=== PATIENT | female | born 1940 | race Caucasian/White ===

== ENCOUNTER 2022-05-22 15:49 | Outpatient (CLI) | payer MEDICARE, BC, SELFPAY ==
[2022-05-22 18:25] LABS: SARS PCR* POSITIVE SARS-CoV-2 (Negative)
== END 2022-05-22 15:50 | disposition home or self-care (01) ==
LOC: LONREF 15:49
PROVIDERS: PCP Family Medicine; Visit Provider Family Medicine
DX: U07.1 COVID-19 (principal); R05.9 Cough, unspecified
CPT/HCPCS: 87635

== ENCOUNTER 2023-04-29 12:01 | Outpatient (CLI) | payer MEDICARE, BC, SELFPAY | END 2023-04-29 12:02 | disposition home or self-care (01) | PROVIDERS: PCP Family Medicine; Visit Provider Family Medicine | DX: I10 Essential (primary) hypertension (principal); Z13.0 Encounter for screening for diseases of the blood and blood-forming organs and certain disorders involving the immune mechanism; Z13.29 Encounter for screening for other suspected endocrine disorder; Z13.21 Encounter for screening for nutritional disorder | CPT/HCPCS: 80048; 82607; 84443 ==

== ENCOUNTER 2023-05-24 10:49 | Outpatient (CLI) | payer MEDICARE, BC, SELFPAY | END 2023-05-24 10:50 | disposition home or self-care (01) | LOC: RAD 10:52 | PROVIDERS: PCP Family Medicine; Visit Provider Family Medicine | DX: R01.1 Cardiac murmur, unspecified (principal); I35.1 Nonrheumatic aortic (valve) insufficiency; I34.0 Nonrheumatic mitral (valve) insufficiency | CPT/HCPCS: 93306 ==

== ENCOUNTER 2024-10-18 05:19 | Outpatient (CLI) | payer MEDICARE, BC, SELFPAY | END 2024-10-18 05:20 | disposition home or self-care (01) | LOC: AMB 10-30 00:35 | PROVIDERS: PCP Family Medicine; Visit Provider Family Medicine | DX: R06.09 Other forms of dyspnea (principal) | CPT/HCPCS: A0425; A0427 ==

== ENCOUNTER 2024-10-18 05:47 | Emergency (ER) | payer MEDICARE, BC, SELFPAY ==
[2024-10-18] VITALS (62 sets, daily range): BP systolic 104–151; BP diastolic 61–92; PULSE 101–119; RESP 18–24; TEMP 36.3; O2SAT 90–100
--- OUTSIDE RECORDS SUMMARY | 2024-10-18 05:50 | XMS_ITS ---
Author Organization [facility] Address [address] [place] [address] Care Team Providers Care Staff Submarine Warfare Officer Name Role Phone Unavailable Unavailable Unavailable Surgery Details Not on file Complications Check Surgery Details section. Procedure Estimated Blood Loss Check Surgery Details section. Procedure Findings Check Surgery Details section. Procedure Specimens Taken Check Surgery Details section.
--- OUTSIDE RECORDS SUMMARY | 2024-10-18 05:50 | XMS_ITS ---
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 Past Treatment and Therapy Plans No past plan information found. Past Radiation Episodes * SBRT: Right Lung - Upper lobeOverview* First Treatment Date Last Treatment Date Treatment Site Technique Goal Episode Provider 08/09/2021 08/14/2021 Right Upper lobe of lung SBRT Curative Leidy Dominguez RMychalN. 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 Mars 03/21/2020 07/03/21: S/p Flexible Bronchoscopy, Right VATS (Video Assisted Thoracoscopic Surgery), Right Lower Lobe Wedge Resection and Thoracic Lymphadenectomy by Dr. Mars. Loss Weight Abnormal 09/19/2017 024
--- OUTSIDE RECORDS SUMMARY | 2024-10-18 05:50 | XMS_ITS | Referral Summary ---
Author Organization [facility] Address [address] [place] [address] Care Team Providers Care Interventional Radiology Technologist Name Role Phone Unavailable Primary Care Provider Unavailabl e Source Comments Patient records contain information from all sites at [facility]. For routine questions regarding patient records, call [phone] during business hours, M-F 8:00 AM - 5:00 PM Central Time. Record requests for emergency care only can be directed to [phone] at any time.[facility] Allergies Active Allergy Reactions Criticality Noted Date Comments Iodine Rash 09/19/2017 Oxycodone Nausea And Vomiting 03/23/2020 Tolerated IV Dilaudid and Adams during hospitalization. Shellfish Derived Anaphylaxis High 09/19/2017 Sulfa (Sulfonamide Antibiotics) Itching 11/18/2020 Medications multivitamin tablet Take 1 tablet by mouth daily. Active acetaminophen (TYLENOL) 500 mg tablet Take 1,000 mg by mouth. 07/06/2021 Active ibuprofen (ADVIL,MOTRIN) 600 mg tablet Take 600 mg by mouth. 07/06/2021 Active hydroCHLOROthia zide (HYDRODIURIL) 25 mg tablet Take 25 mg by mouth daily. 07/30/2022 Active Spiriva with HandiHaler 18 mcg inhalation capsule Inhale 1 capsule daily. 01/13/2023 Active OMEPRAZOLE ORAL Take 10 mg by mouth. 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 Mars. Loss Weight Abnormal 09/19/2017 024 Immunizations Immunization Administration Dates Next Due Influenza TIV (IM) 07/12/2008, 7,07/31/2006,2004 Influenza high dose QV(65 ye ars or older) (PF) 08/06/2023,07/12/2022,06/28/2021,2019 Influenza, Injectable, Quadrivalent 07/15/2017 Influenza, Seasonal, Injectable 07/12/20 08,07/23/2007,07/31/2006,2004 PCV13 11/16/2014 PPSV23 02/21/2011,12/05/2005 Tdap 04/29/2023,02/21/2011 influenza trivalent high dos e (HD)(PF) 07/28/2019,07/02/2018,07/17/2017,2015,07/05/2015,06/29/2014 influenza trivalent vaccine (6 months and older)(PF) 06/09/2013,06/25/2012,07/11/2011,2009,06/29/2009 Social History Tobacco Use Types Packs/Day Years Used Date Smoking Tobacco: Former Cigarettes Smokeless Tobacco: Never Tobacco Cessation:Counseling Given: Not Answered Nutrition Answer Date Recorded Nutrition: EVOO Fat Source Unknown 07/19 Nutrition: Servings of Fruits/Vegetables per Day Not on file 07/19/2021 Dental Answer Date Recorded Dental: Regular Dentist Unknown 07/19/20 21 Comments Unknown Sex and Gender Information Value Date Recorded Sex Assigned at Not on file Legal Sex Female 1:22 PM 3D DESIGNER Gender Identity Not on file Sexual Orientation Not on file Last Filed Vital Signs Vital Sign Reading Time Taken Comments Blood Pressure 115/50 05/07/2024 11:30 AM CDT Pulse 74 05/07/2024 11:30 AM CDT Temperature 36.9 C (98.5 F) 05/07/2024 11:30 AM CDT Respiratory Rate - - Oxygen Saturation - - Inhaled Oxygen Concentration - - Weight 55 kg (121 lb 4.1 oz) 05/07/2024 11:30 AM CDT Height 161.5 cm (5' 3.58) 08/02/2021 1:23 PM CD T Body Mass Index 21.09 08/02/2021 1:23 PM CDT Plan of Treatment Upcoming Encounters Date Type Department Care Team (Late st Contact Info) Description 11/05/2024 10:30 AM 3D DESIGNER Appointment Department of Radiology in [place], [place] [address] [place] [phone] Merle Gonzáles P.A.-C., M.S. [address] [place] [phone] Discharge Disposition: Home or Self Care 11/10/2024 2:30 PM 3D DESIGNER Appointment Department of Radiation Oncology in [place], [place] [address] [place] [phone] Olive Johnston M.D. [address] [place] [phone] Insurance MEDICARE [facility]
--- OUTSIDE RECORDS SUMMARY | 2024-10-18 05:50 | XMS_ITS | Clinical Summary ---
Author Organization [facility] Address [place], [place] [address] Care Team Providers Care Rack Pusher Name Role Phone Arianne Hernandez RN, BSN Unavailable [phone] Soto Mars MD Unavailable [phone] Pcp, No Primary Care Provider Unavailabl e Allergies Active Allergy Reactions Criticality Noted Date Comments Iodine Rash 09/19/2017 Oxycodone Nausea And Vomiting 03/23/2020 Tolerated IV Dilaudid and Pound during hospitalization. Shellfish Derived Anaphylaxis High 09/19/2017 Sulfa (Sulfonamide Antibiotics) Itching 11/18/2020 Medications SPIRIVA 18 mcg inhalation capsule Inhale 18 mcg by mouth once daily. 09/17/20 17 Active multivitamin (MVI) tablet Take 1 tablet by mouth once daily. Active ibuprofen (ADVIL; MOTRIN) 600 mg tabletIndication s:pain Take 1 Tablet (600 mg) by mouth 3 times daily with meals. Maximum of 3200 mg in 24 hours. 150 Tablet 07/06/2021 1:18 PM CDT 07/06/20 21 Active acetaminophen (TYLENOL EXTRA STRGTH) 500 mg tabletIndication s:Primary cancer of right lower lobe of lung (HC) Take 2 Tablets (1,000 mg) by mouth 4 times daily if needed. Max acetaminophen dose: 4000mg in 24 hrs. 150 Tablet 07/06/2021 1:18 PM CDT 07/06/20 21 Active hydroCHLOROthiaz walter 25 mg tablet Take 25 mg by mouth once daily. 07/30/20 22 Active albuterol HFA (PRO-AIR; VENTOLIN; PROVENTIL) 90 mcg/actuation inhalerIndicatio ns:COPD exacerbation (HC) Inhale 1-2 Puffs by mouth every 4 hours if needed for Shortness Of Breath or Wheezing. 3 Each 3 04/03/20 24 Active Active Problems Problem Noted Date Diagnosed Date Empyema of right pleural space 07/10/2021 Leukocytosis 07/09/2021 Hyponatremia 07/09/2021 RAKESH (acute kidney injury) 07/09/2021 Primary cancer of right lower lobe of lung 07/04 S/P partial lobectomy of lung 07/04/2021 Overview (07/04/2021): 07/03/21: S/p Flexible Bronchoscopy, Right VATS (Video Assisted Thoracoscopic Surgery), Right Lower Lobe Wedge Resection and Thoracic Lymphadenectomy by Dr. Mars. Primary cancer of right upper lobe of lung 11/21 Overview (11/21/2020): S/p right VATS, right upper lobe wedge resection and thoracic lymphadenectomy performed by Dr. Mars on 11/21/2020 Primary cancer of left upper lobe of lung 2019 S/P lobectomy of lung 03/21/2020 Overview (03/21/2020): S/p Left VATS, Left Upper Lobectomy, Thoracic Lymphadenectomy performed by Dr. Mars 03/21/2020 Other emphysema 09/19/2017 Achalasia 09/19/2017 Esophageal diverticular disease 09/19/2017 Dysphasia 09/19/2017 Weight loss 09/19/2017 Immunizations Name Administration Dates Next Due COVID-19 VACCINE SPIKEVAX (M ODERNA 50MCG/0.5ML) 12YO+ PFS 10/21/2023 Influenza Virus, Unspecified 07/15/2017, 07/12/2008,07/23/2007,2005,08/22/2005 Influenza, High-dose Inactivated 019,07/02/2018,07/17/2017,2015,07/05/2015,06/29/2014 Influenza, High-dose Quadriv alent Inactivated 08/06/2023,07/12/2022,06/28/2021,2019 Influenza, IIV3 (Age 6-35 mos) 3,06/25/2012,07/11/2011,2009,06/29/2009 Influenza, IIV3 (Age >=3 years) 07/12/20 08,07/23/2007,07/31/2006,2004 Influenza, IIV4 07/15/2017 Pneumococcal Poly,23-Valent (Pneumovax) 02/21/2011,12/05/2005 Pneumococcal conj 13-Valent (Prevnar 13) 11/16/2014 Tdap 04/29/2023,02/21/2011 Family History Medical History Relation Name Comments Cancer-breast Mother Relation Name Status Comments Mother Social History Tobacco Use Types Packs/Day Years Used Date Smoking Tobacco: Former Cigarettes 2 55 Smokeless Tobacco: Never Comments:quit prior to 2009 Alcohol Use Standard Drinks/Week Comments Yes 0 (1 standard drink = 0.6 oz pur e alcohol) 1-3 drinks per day Social Connections Answer Date Recorded Do you often feel lonely or isolated from those around you? 0 04/07/2024 Financial Resource Strain Answer Date R ecorded Difficulty of Paying Living Expenses 3 04/07/2024 Difficulty of Paying Living Expenses Not on file 04/07/2024 Food Insecurity Answer Date Recorded Do you worry your food will run out before you are able to buy more? 1 04/07/2024 Transportation Needs Answer Date Record ed Does lack of transportation keep you from medica l appointments? 1 04/07/2024 Does lack of transportation keep you from work, meetings or getting things that you need? 1 04/07/2024 Housing Stability Answer Date Recorded What is your housing situation today? 1 04/07/2024 Utilities Answer Date Recorded Do you have trouble paying f or utilities (for example, heat, electricity, water, phone)? 1 04/07/2024 Comments No Sex and Gender Information Value Date Recorded Sex Assigned at Not on file Legal Sex Female 5:25 AM TAX ASSOCIATE Gender Identity Not on file Sexual Orientation Not on file Obstetrics History Last Filed Vital Signs Vital Sign Reading Time Taken Comments Blood Pressure 124/50 05/19/2024 8:30 AM CDT Pulse 80 05/19/2024 8:30 AM CDT Temperature 36.8 C (98.2 F) 05/19/2024 8:30 AM CDT Respiratory Rate 20 07/13/2021 10:00 AM CDT Oxygen Saturation 96% 05/19/2024 8:30 AM CDT Inhaled Oxygen Concentration - - Weight 55.3 kg (122 lb) 05/19/2024 8:30 AM CDT Height 165.1 cm (5' 5) 04/03/2024 10:02 AM CDT Body Mass Index 20.3 04/03/2024 10:02 AM CDT Plan of Treatment Health Maintenance Due Date Last Done Comments Depression screening for age 12+ 1952 Zoster (shingles) series for age 50+ (1 of 2) 1990 DEXA/DXA scan for age 65+ 2005 Medicare Wellness for age 65+ 2005 RSV vaccine for adults or (1 - 1-dose 75+ series) 2015 COVID-19 vaccine series ( season) 2024 10/21/2023, 08/07/2022, 09/19/2021, Additional history exists Influenza for age 65+ 05/31/2024 08/06/2023 , 07/12/2022, 06/28/2021, Additional history exists BMI (ht and wt on same day) for age 18+ 04/03/2025 04/03/2024, 11/07/2017, 09/19/2017 Tetanus booster 04/29/2033 04/29/2023, 02/21/2011 Pneumococcal series for age 50+ Completed 11/16/2014, 02/21/2011, 12/05/2005 Tdap Completed 04/29/2023, 02/21/2011 Insurance MEDICARE PB ONLY [facility]UE [facility] FED EMP MEDICARE PART B HB ONLY MEDICARE PART A HB ONLY Advance Directives * Full Code (Latest Code Status on File) Date Activated Date Inactivated Comments 07/09/2021 6:15 PM 07/13/2021 6:55 PM Question Answer Comments Code Status Discussion: Discussed * Full Code Date Activated Date Inactivated Comments 07/03/2021 5:49 AM 07/06/2021 7:04 PM Question Answer Comments Code Status Discussion: Not Discussed * Full Code Date Activated Date Inactivated Comments 11/21/2020 9:33 AM 11/23/2020 2:28 PM Question Answer Comments Code Status Discussion: Not Discussed * Full Code Date Activated Date Inactivated Comments 03/21/2020 10:21 AM 03/25/2020 2:40 PM * Full Code Date Activated Date Inactivated Comments 02/24/2020 9:47 AM 02/24/2020 6:07 PM Care Teams Rack Pusher Relationship Specialty Start Date End Date Pcp, No . PCP - General 06/01/21 Arianne Hernandez, RN, BSN [address] [place] [id number] Cancer Nurse Coordinator Registered Nurse 04/04/20 Soto Mars MD [address] [address] Cancer Nurse Coordinator Surgery - Cardiothoracic 04/05/20
--- OUTSIDE RECORDS SUMMARY | 2024-10-18 05:50 | XMS_ITS | Clinical Summary ---
Author Organization [facility] Address [address] [place] [address] Care Team Providers Care Records Section Supervisor Name Role Phone Unavailable Primary Care Provider Unavailabl e Source Comments Patient records contain information from all sites at [facility]. For routine questions regarding patient records, call [phone] during business hours, M-F 8:00 AM - 5:00 PM Central Time. Record requests for emergency care only can be directed to [phone] at any time.[facility] Allergies Active Allergy Reactions Criticality Noted Date Comments Iodine Rash 09/19/2017 Oxycodone Nausea And Vomiting 03/23/2020 Tolerated IV Dilaudid and Jewett during hospitalization. Shellfish Derived Anaphylaxis High 09/19/2017 [...] on file Legal Sex Female 1:22 PM AUTO FLEET MAINTENANCE MANAGER Gender Identity Not on file Sexual Orientation [...] st Contact Info) Description 11/05/2024 10:30 AM AUTO FLEET MAINTENANCE MANAGER Appointment Department of Radiology in [place], [place] [address] [place] [phone] Merle Gonzáles P.A.-C., M.S. [address] [place] [phone] Discharge Disposition: Home or Self Care 11/10/2024 2:30 PM AUTO FLEET MAINTENANCE MANAGER Appointment Department of Radiation Oncology in [place], [place] [address] [place] [phone] Olive Johnston M.D. [address] [place] [phone] Health Maintenance Due Date Last Done Comments Zoster Vaccines (1 of 2) 1959 RSV vaccine - (32-36 weeks) or 60+ years (1 - 1-dose 75+ series) 2015 COVID-19 Vaccine (6 - 2023- season) 2024 10/21/2023, 08/07/2022, 09/19/2021, Additional history exists Influenza Vaccine (#1) 2024 , 07/12/2022, 06/28/2021, Additional history exists Depression Screening (Annual PHQ-2) 09/30/2024 Fall Risk Screen (Annual) 09/30/2024 DTaP,Tdap,and Td Vaccines (3 - Td or Tdap) 04/29/2033 04/29/2023, 02/21/2011 Pneumococcal vaccine (50+ years) Completed 11/16/2014, 02/21/2011, 12/05/2005 HPV Vaccines Aged Out No longer eligi ble based on patient's age to complete this topic IPV Vaccines Aged Out No longer eligi ble based on patient's age to complete this topic Insurance MEDICARE [facility]
--- NOTE | 2024-10-18 05:58 | ED.GENADULT ---
HPI - General Adult General Time Seen by Provider: 05:58 <Kassandra Castellanos MD - Last Filed: 10/18/24 07:51> Date Seen: 10/18/24 <Kassandra Castellanos MD - Last Filed: 10/18/24 07:51> Chief complaint: Shortness of Breath/Dyspnea <Kassandra Castellanos MD - Last Filed: 10/18/24 07:51> Stated complaint: difficulty breathing <Kassandra Castellanos MD - Last Filed: 10/18/24 07:51> Time Seen by Provider: 10/18/24 05:57 <Kassandra Castellanos MD - Last Filed: 10/18/24 07:51> Source: patient, EMS and RN notes reviewed <Kassandra Castellanos MD - Last Filed: 10/18/24 07:51> Mode of arrival: EMS <Kassandra Castellanos MD - Last Filed: 10/18/24 07:51> Limitations: no limitations <Kassandra Castellanos MD - Last Filed: 10/18/24 07:51> History of Present Illness HPI narrative: This 83-year-old female with underlying COPD called EMS from her home tonight with increased difficulty breathing. Patient does tell me that she has been coughing for 2 months. She denies any new cough, no worsening, no fevers with it. She does not think she has developed a new illness. When EMS arrived at her house, her room air sats were 80%. She had just tried her inhaler. They started her on a DuoNeb which helped her some. They tried her on BiPAP which she did not tolerate. They did give her 0.3 mg epinephrine and did start her on albuterol nebulization. She states that she is still having difficulty breathing. They also did put her on 4 L nasal cannula oxygen. EMS brought this patient in as a [facility] Clinic history reviewed. She has had a history of bronchitis, has underlying COPD. She had non-small cell cancer of left lung with left lobectomy in 2019, right lung cancer resection in 2 places in 2020. History of multiple pulmonary nodules. GERD, history of colon polyps, hypertension, esophageal stenosis. Patient has a remote smoking history, quit in 2009. <Kassandra Castellanos MD - Last Filed: 10/18/24 07:51> Related Data Home medications: Home Medications ?Medication ?Instructions ?Recorded ?Confirmed multivitamin 1 tab PO QDAY 05/22/22 09/28/24 omeprazole 20 mg tablet,delayed mg PO DAILY 05/22/22 09/28/24 release Previous Rx's ?Medication ?Instructions ?Recorded tiotropium bromide 18 mcg capsule 1 cap inhalation DAILY #90 ea 08/26/24 with inhalation device (Spiriva with HandiHaler) albuterol sulfate 90 mcg/actuation 1 - 2 puff inhalation Q4H PRN 09/02/24 aerosol inhaler wheezing #8.5 grams benzonatate 100 mg capsule 100 mg PO TID PRN cough #30 caps 09/02/24 doxycycline hyclate 100 mg tablet 100 mg PO BID #14 tabs 09/02/24 prednisone 20 mg tablet 20 mg PO QDAY #7 tabs 09/02/24 hydrochlorothiazide 25 mg tablet 25 mg PO QDAY #30 tabs 10/13/24 <Kassandra Castellanos MD - Last Filed: 10/18/24 07:51> Allergies/adverse reactions: Allergies Allergy/AdvReac Type Severity Reaction Status Date / Time iodine Allergy Unknown Vomiting Verified 09/28/24 12:45 anesthetic Allergy Intermediate nausea and Uncoded 09/28/24 12:45 vomiting Shrimp Flavor Allergy Mild Uncoded 09/28/24 12:45 Sulfamethoxazole / Allergy Mild itching Uncoded 09/28/24 12:45 trimethoprim <Kassandra Castellanos MD - Last Filed: 10/18/24 07:51> Review of Systems Status of ROS: Reports: 6 or more systems reviewed and unremarkable except as noted in History and below <Kassandra Castellanos MD - Last Filed: 10/18/24 07:51> [facility] Medical History: Medical History Lesion of skin of face ?L98.9 - Disorder of the skin and subcutaneous tissue, unspecified (ICD-10) Tobacco use (10/12/09) ?Z72.0 - Tobacco use (ICD-10) <Kassandra Castellanos MD - Last Filed: 10/18/24 07:51> Surgical History: Surgical History History of repair of hiatal hernia ?Z98.890 - Other specified postprocedural states (ICD-10) ?Z87.19 - Personal history of other diseases of the digestive system (ICD-10) Status post repair of ventral hernia ?Z98.890 - Other specified postprocedural states (ICD-10) ?Z87.19 - Personal history of other diseases of the digestive system (ICD-10) Status post laparoscopic appendectomy ?Z90.49 - Acquired absence of other specified parts of digestive tract (ICD-10) History of colonoscopy ?Z98.890 - Other specified postprocedural states (ICD-10) History of cholecystectomy (10/12/09) ?Z90.49 - Acquired absence of other specified parts of digestive tract (ICD-10) History of section (10/12/09) ?Z98.891 - History of uterine scar from previous surgery (ICD-10) History of cataract extraction ?Z98.49 - Cataract extraction status, unspecified eye (ICD-10) <Kassandra Castellanos MD - Last Filed: 10/18/24 07:51> Family History: Family History Other Breast cancer <Kassandra Castellanos MD - Last Filed: 10/18/24 07:51> Social History: Social History Narrative: Current non-smoker but past smoking history unknown What is your current living situation?: I presently have a place to live Problems where you live: declined to answer In the past 12 months, utilities in danger of being shut off: no In past 12 months, lack of transportation kept you from medical appts, meetings, work, or getting things needed for daily living: no In the past 12 mos, have been you worried that your food would run out before you had money to buy more?: never true In the past 12 mos, the food you bought just didn't last and you didn't have money to buy more?: never true Smoking Status: Former smoker Non-prescribed substance use: denies use How often does anyone, including family, friends and others, physically hurt you: never How often does anyone, including family, friends and others, insult or talk down to you: never How often does anyone, including family, friends and others, threaten you with harm: never How often does anyone, including family, friends and others, scream or curse at you: never <Kassandra Castellanos MD - Last Filed: 10/18/24 07:51> Exam Const: Vital Signs, click to edit/add: Vital Signs - 24 hr 10/18/24 06:01 10/18/24 06:12 10/18/24 06:14 Temperature 97.3 F L Pulse Rate 115 H 114 H Pulse Rate [Pulse Oximeter] 115 H Respiratory Rate 20 22 Blood Pressure 141/91 H Pulse Oximetry 100 97 98 Oxygen Delivery Me thod Nasal Cannula OxyMask Oxygen Flow Rate 5 10/18/24 06:15 10/18/24 06:16 10/18/24 06:16 Temperature Pulse Rate 110 H Pulse Rate [Pulse Oximeter] Respiratory Rate Blood Pressure Pulse Oximetry 97 92 92 Oxygen Delivery Me thod OxyMask Room Air Oxygen Flow Rate 5 10/18/24 06:22 10/18/24 06:22 10/18/24 06:30 Temperature Pulse Rate 108 H Pulse Rate [Pulse Oximeter] Respiratory Rate Blood Pressure Pulse Oximetry 98 98 97 Oxygen Delivery Me thod OxyMask OxyMask Oxygen Flow Rate 2 2 10/18/24 06:32 10/18/24 06:45 10/18/24 07:00 Temperature Pulse Rate 104 H 113 H 101 H Pulse Rate [Pulse Oximeter] Respiratory Rate Blood Pressure 128/75 Pulse Oximetry 96 94 97 Oxygen Delivery Me thod OxyMask Oxygen Flow Rate 10/18/24 07:02 10/18/24 07:15 10/18/24 07:30 Temperature Pulse Rate 108 H 111 H 107 H Pulse Rate [Pulse Oximeter] Respiratory Rate 20 Blood Pressure 130/74 Pulse Oximetry 97 95 94 Oxygen Delivery Me thod OxyMask OxyMask OxyMask Oxygen Flow Rate 10/18/24 07:32 10/18/24 07:45 10/18/24 08:00 Temperature Pulse Rate 105 H 106 H 102 H Pulse Rate [Pulse Oximeter] Respiratory Rate 18 Blood Pressure 114/76 Pulse Oximetry 93 94 94 Oxygen Delivery Me thod OxyMask OxyMask OxyMask Oxygen Flow Rate 10/18/24 08:02 10/18/24 08:15 10/18/24 08:30 Temperature Pulse Rate 109 H 104 H 106 H Pulse Rate [Pulse Oximeter] Respiratory Rate Blood Pressure 109/68 Pulse Oximetry 94 93 96 Oxygen Delivery Me thod OxyMask OxyMask OxyMask Oxygen Flow Rate 10/18/24 08:31 10/18/24 08:45 10/18/24 09:00 Temperature Pulse Rate 105 H 107 H 107 H Pulse Rate [Pulse Oximeter] Respiratory Rate 18 Blood Pressure 111/67 Pulse Oximetry 96 94 97 Oxygen Delivery Me thod OxyMask OxyMask OxyMask Oxygen Flow Rate 10/18/24 09:02 10/18/24 09:15 10/18/24 09:30 Temperature Pulse Rate 104 H 108 H 109 H Pulse Rate [Pulse Oximeter] Respiratory Rate Blood Pressure 104/65 Pulse Oximetry 95 95 93 Oxygen Delivery Me thod OxyMask OxyMask OxyMask Oxygen Flow Rate 2 10/18/24 09:31 10/18/24 09:45 10/18/24 10:00 Temperature Pulse Rate 112 H 111 H 108 H Pulse Rate [Pulse Oximeter] Respiratory Rate Blood Pressure 117/74 Pulse Oximetry 94 95 95 Oxygen Delivery Me thod OxyMask OxyMask OxyMask Oxygen Flow Rate 2 2 2 10/18/24 10:02 10/18/24 10:15 10/18/24 10:30 Temperature Pulse Rate 104 H 105 H 116 H Pulse Rate [Pulse Oximeter] Respiratory Rate Blood Pressure 111/73 Pulse Oximetry 96 95 94 Oxygen Delivery Me thod OxyMask OxyMask OxyMask Oxygen Flow Rate 2 2 2 10/18/24 10:32 10/18/24 10:45 10/18/24 11:02 Temperature Pulse Rate 112 H 105 H 117 H Pulse Rate [Pulse Oximeter] Respiratory Rate Blood Pressure 126/82 127/90 H Pulse Oximetry 94 94 90 Oxygen Delivery Me thod OxyMask OxyMask OxyMask Oxygen Flow Rate 2 2 2 10/18/24 11:03 10/18/24 11:15 10/18/24 11:30 Temperature Pulse Rate 115 H 113 H 109 H Pulse Rate [Pulse Oximeter] Respiratory Rate Blood Pressure Pulse Oximetry 92 92 95 Oxygen Delivery Me thod OxyMask OxyMask OxyMask Oxygen Flow Rate 2 2 2 10/18/24 11:32 10/18/24 11:45 10/18/24 12:00 Temperature Pulse Rate 112 H 106 H 107 H Pulse Rate [Pulse Oximeter] Respiratory Rate Blood Pressure 113/61 Pulse Oximetry 95 94 94 Oxygen Delivery Me thod OxyMask OxyMask OxyMask Oxygen Flow Rate 2 2 2 10/18/24 12:02 10/18/24 12:15 10/18/24 12:30 Temperature Pulse Rate 118 H 111 H 110 H Pulse Rate [Pulse Oximeter] Respiratory Rate Blood Pressure 117/84 Pulse Oximetry 94 94 94 Oxygen Delivery Me thod OxyMask OxyMask OxyMask Oxygen Flow Rate 2 2 2 10/18/24 12:31 10/18/24 12:45 10/18/24 13:00 Temperature Pulse Rate 113 H 110 H 108 H Pulse Rate [Pulse Oximeter] Respiratory Rate Blood Pressure 120/75 Pulse Oximetry 95 93 94 Oxygen Delivery Me thod OxyMask OxyMask OxyMask Oxygen Flow Rate 2 2 2 10/18/24 13:02 10/18/24 13:15 10/18/24 13:30 Temperature Pulse Rate 108 H 110 H 112 H Pulse Rate [Pulse Oximeter] Respiratory Rate Blood Pressure 112/66 Pulse Oximetry 95 92 95 Oxygen Delivery Me thod OxyMask OxyMask OxyMask Oxygen Flow Rate 2 2 2 10/18/24 13:32 Temperature Pulse Rate 107 H Pulse Rate [Pulse Oximeter] Respiratory Rate Blood Pressure 113/64 Pulse Oximetry 95 Oxygen Delivery Me thod OxyMask Oxygen Flow Rate 2 Patient is seen on arrival, she is doing an albuterol neb. She is tachypneic but can speak. Voice is not hoarse. Does do some coughing which sounds coarse. Pupils equal round reactive, sclera clear. Face atraumatic. Neck supple, do not appreciate any masses or jugular venous distension. Lungs with end-expiratory wheezing, do hear prolonged expiratory phase. Do hear air movement throughout the lungs. CV fast but regular, do not appreciate any significant murmur. Normal S1-S2. Abdomen is soft, nontender, nondistended. She has some mild nonpitting lower extremity edema maybe 1+, symmetric between the legs. She is moving her arms and legs. <Kassandra Castellanos MD - Last Filed: 10/18/24 07:51> Vital Signs, click to edit/add: Vital Signs - 24 hr 10/18/24 06:01 10/18/24 06:12 10/18/24 06:14 Temperature 97.3 F L Pulse Rate 115 H 114 H Pulse Rate [Pulse Oximeter] 115 H Respiratory Rate 20 22 Blood Pressure 141/91 H Pulse Oximetry 100 97 98 Oxygen Delivery Me thod Nasal Cannula OxyMask Oxygen Flow Rate 5 10/18/24 06:15 10/18/24 06:16 10/18/24 06:16 Temperature Pulse Rate 110 H Pulse Rate [Pulse Oximeter] Respiratory Rate Blood Pressure Pulse Oximetry 97 92 92 Oxygen Delivery Me thod OxyMask Room Air Oxygen Flow Rate 5 10/18/24 06:22 10/18/24 06:22 10/18/24 06:30 Temperature Pulse Rate 108 H Pulse Rate [Pulse Oximeter] Respiratory Rate Blood Pressure Pulse Oximetry 98 98 97 Oxygen Delivery Me thod OxyMask OxyMask Oxygen Flow Rate 2 2 10/18/24 06:32 10/18/24 06:45 10/18/24 07:00 Temperature Pulse Rate 104 H 113 H 101 H Pulse Rate [Pulse Oximeter] Respiratory Rate Blood Pressure 128/75 Pulse Oximetry 96 94 97 Oxygen Delivery Me thod OxyMask Oxygen Flow Rate 10/18/24 07:02 10/18/24 07:15 10/18/24 07:30 Temperature Pulse Rate 108 H 111 H 107 H Pulse Rate [Pulse Oximeter] Respiratory Rate 20 Blood Pressure 130/74 Pulse Oximetry 97 95 94 Oxygen Delivery Me thod OxyMask OxyMask OxyMask Oxygen Flow Rate 10/18/24 07:32 10/18/24 07:45 10/18/24 08:00 Temperature Pulse Rate 105 H 106 H 102 H Pulse Rate [Pulse Oximeter] Respiratory Rate 18 Blood Pressure 114/76 Pulse Oximetry 93 94 94 Oxygen Delivery Me thod OxyMask OxyMask OxyMask Oxygen Flow Rate 10/18/24 08:02 10/18/24 08:15 10/18/24 08:30 Temperature Pulse Rate 109 H 104 H 106 H Pulse Rate [Pulse Oximeter] Respiratory Rate Blood Pressure 109/68 Pulse Oximetry 94 93 96 Oxygen Delivery Me thod OxyMask OxyMask OxyMask Oxygen Flow Rate 10/18/24 08:31 10/18/24 08:45 10/18/24 09:00 Temperature Pulse Rate 105 H 107 H 107 H Pulse Rate [Pulse Oximeter] Respiratory Rate 18 Blood Pressure 111/67 Pulse Oximetry 96 94 97 Oxygen Delivery Me thod OxyMask OxyMask OxyMask Oxygen Flow Rate 10/18/24 09:02 10/18/24 09:15 10/18/24 09:30 Temperature Pulse Rate 104 H 108 H 109 H Pulse Rate [Pulse Oximeter] Respiratory Rate Blood Pressure 104/65 Pulse Oximetry 95 95 93 Oxygen Delivery Me thod OxyMask OxyMask OxyMask Oxygen Flow Rate 2 10/18/24 09:31 10/18/24 09:45 10/18/24 10:00 Temperature Pulse Rate 112 H 111 H 108 H Pulse Rate [Pulse Oximeter] Respiratory Rate Blood Pressure 117/74 Pulse Oximetry 94 95 95 Oxygen Delivery Me thod OxyMask OxyMask OxyMask Oxygen Flow Rate 2 2 2 10/18/24 10:02 10/18/24 10:15 10/18/24 10:30 Temperature Pulse Rate 104 H 105 H 116 H Pulse Rate [Pulse Oximeter] Respiratory Rate Blood Pressure 111/73 Pulse Oximetry 96 95 94 Oxygen Delivery Me thod OxyMask OxyMask OxyMask Oxygen Flow Rate 2 2 2 10/18/24 10:32 10/18/24 10:45 10/18/24 11:02 Temperature Pulse Rate 112 H 105 H 117 H Pulse Rate [Pulse Oximeter] Respiratory Rate Blood Pressure 126/82 127/90 H Pulse Oximetry 94 94 90 Oxygen Delivery Me thod OxyMask OxyMask OxyMask Oxygen Flow Rate 2 2 2 10/18/24 11:03 10/18/24 11:15 10/18/24 11:30 Temperature Pulse Rate 115 H 113 H 109 H Pulse Rate [Pulse Oximeter] Respiratory Rate Blood Pressure Pulse Oximetry 92 92 95 Oxygen Delivery Me thod OxyMask OxyMask OxyMask Oxygen Flow Rate 2 2 2 10/18/24 11:32 10/18/24 11:45 10/18/24 12:00 Temperature Pulse Rate 112 H 106 H 107 H Pulse Rate [Pulse Oximeter] Respiratory Rate Blood Pressure 113/61 Pulse Oximetry 95 94 94 Oxygen Delivery Me thod OxyMask OxyMask OxyMask Oxygen Flow Rate 2 2 2 10/18/24 12:02 10/18/24 12:15 10/18/24 12:30 Temperature Pulse Rate 118 H 111 H 110 H Pulse Rate [Pulse Oximeter] Respiratory Rate Blood Pressure 117/84 Pulse Oximetry 94 94 94 Oxygen Delivery Me thod OxyMask OxyMask OxyMask Oxygen Flow Rate 2 2 2 10/18/24 12:31 10/18/24 12:45 10/18/24 13:00 Temperature Pulse Rate 113 H 110 H 108 H Pulse Rate [Pulse Oximeter] Respiratory Rate Blood Pressure 120/75 Pulse Oximetry 95 93 94 Oxygen Delivery Me thod OxyMask OxyMask OxyMask Oxygen Flow Rate 2 2 2 10/18/24 13:02 10/18/24 13:15 10/18/24 13:30 Temperature Pulse Rate 108 H 110 H 112 H Pulse Rate [Pulse Oximeter] Respiratory Rate Blood Pressure 112/66 Pulse Oximetry 95 92 95 Oxygen Delivery Me thod OxyMask OxyMask OxyMask Oxygen Flow Rate 2 2 2 10/18/24 13:32 Temperature Pulse Rate 107 H Pulse Rate [Pulse Oximeter] Respiratory Rate Blood Pressure 113/64 Pulse Oximetry 95 Oxygen Delivery Me thod OxyMask Oxygen Flow Rate 2 <Eloy Fisher DO - Last Filed: 10/18/24 14:31> Documenting provider has reviewed patient's vital signs: yes <Kassandra Castellanos MD - Last Filed: 10/18/24 07:51> Course Course ED Course: This patient is having respiratory difficulty and presumably COPD exacerbation. Need to decipher whether is underlying illness whether viral or bacterial. Other considerations could be thromboembolic disease, will get a D-dimer. Will get Solu-Medrol going, consider other medicines as needed is such as Lasix if there should be any fluid overload suggested. May need to give further nebulization. She does not appear to need intubation at this point but may have to talk to her about this if she cannot tolerate BiPAP and is not improving with time here. Will get full complement of labs including cardiac labs, D-dimer, infectious labs with the triple viral swab. <Kassandra Castellanos MD - Last Filed: 10/18/24 07:51> Reevaluation(s) Time of Reevaluation #1: 06:11 <Kassandra Castellanos MD - Last Filed: 10/18/24 07:51> Reevaluation #1: Patient is currently 100% on room air, still mildly tachypneic but has improved aeration from what EMS noted. Nursing staff tells me that she is having a lot of clear nasal drainage and coughing up some sputum. Patient tells me she was supposed to have some type of imaging here last week which got canceled and seems quite upset about it. I tried to refocus the patient and let her know that I have no knowledge of that, we really need to focus on current situation here. She will be getting a chest x-ray for sure right now. We will also get the Solu-Medrol 125 mg IV in. <Kassandra Castellanos MD - Last Filed: 10/18/24 07:51> Time of Reevaluation #2: 06:28 <Kassandra Castellanos MD - Last Filed: 10/18/24 07:51> Reevaluation #2: Have seen radiologist over read of chest x-ray. Will initiate Rocephin and Z-Nadeem for probable community-acquired pneumonia. Awaiting other labs, may need to consider chest imaging with CT in this patient. <Kassandra Castellanos MD - Last Filed: 10/18/24 07:51> Time of Reevaluation #3: 07:49 <Kassandra Castellanos MD - Last Filed: 10/18/24 07:51> Reevaluation #3: Patient is no longer audibly wheezing. She is feeling much better. Her daughter is here. We have reviewed that she has pneumonia. Antibiotics have been initiated. She has her albuterol inhaler but does not have a spacer with this. I have alerted nursing staff, they will either get her spacer or talk to respiratory therapy if here. We did review this small slight rise in her troponin and the need for follow-up troponin. She is not having any chest pain, we reviewed that I do not believe that she has had a heart attack at this point but her illness this morning and respiratory difficulty could have caused strain. If her troponin is rapidly escalating, Cardiology should be consulted. <Kassandra Castellanos MD - Last Filed: 10/18/24 07:51> Consultations Consultation #1: Have spoken with hospitalist Dr. Dunham and we have preliminarily discussed this patient. This patient will need a follow-up troponin, if stable, she will accept the patient. Otherwise, if concerning changes with the troponin, Cardiology will likely need to be talked to to come up with a definitive plan. Will be signing this patient over to my oncoming partner in the ER. <Kassandra Castellanos MD - Last Filed: 10/18/24 07:51> Time: 07:30 <Kassandra Castellanos MD - Last Filed: 10/18/24 07:51> Vital Signs Vital signs: Initial Vital Signs Temperature 97.3 F L 10/18/24 06:01 Temperature Source Temporal Artery Scan 10/18/24 06:01 Pulse Rate 115 H 10/18/24 06:01 Respiratory Rate 20 10/18/24 06:01 Pulse Oximetry 100 10/18/24 06:01 Oxygen Delivery Method Nasal Cannula 10/18/24 06:01 Vital Signs Temperature 97.3 F L 10/18/24 06:01 Pulse Rate 115 H 10/18/24 06:01 Respiratory Rate 20 10/18/24 06:01 Pulse Oximetry 100 10/18/24 06:01 Oxygen Delivery Method Nasal Cannula 10/18/24 06:01 Temperature 97.3 F L 10/18/24 06:01 Pulse Rate 107 H 10/18/24 13:32 Respiratory Rate 18 10/18/24 08:31 Blood Pressure 113/64 10/18/24 13:32 Pulse Oximetry 95 10/18/24 13:32 Oxygen Delivery Method OxyMask 10/18/24 13:32 Oxygen Flow Rate 2 10/18/24 13:32 <Kassandra Castellanos MD - Last Filed: 10/18/24 07:51> Initial Vital Signs Temperature 97.3 F L 10/18/24 06:01 Temperature Source Temporal Artery Scan 10/18/24 06:01 Pulse Rate 115 H 10/18/24 06:01 Respiratory Rate 20 10/18/24 06:01 Pulse Oximetry 100 10/18/24 06:01 Oxygen Delivery Method Nasal Cannula 10/18/24 06:01 Vital Signs Temperature 97.3 F L 10/18/24 06:01 Pulse Rate 115 H 10/18/24 06:01 Respiratory Rate 20 10/18/24 06:01 Pulse Oximetry 100 10/18/24 06:01 Oxygen Delivery Method Nasal Cannula 10/18/24 06:01 Temperature 97.3 F L 10/18/24 06:01 Pulse Rate 107 H 10/18/24 13:32 Respiratory Rate 18 10/18/24 08:31 Blood Pressure 113/64 10/18/24 13:32 Pulse Oximetry 95 10/18/24 13:32 Oxygen Delivery Method OxyMask 10/18/24 13:32 Oxygen Flow Rate 2 10/18/24 13:32 <Eloy Fisher, DO - Last Filed: 10/18/24 14:31> Medications Administered Medications: Generic Name Dose Route Start Last Admin Trade Name Freq PRN Reason Stop Dose Admin Heparin Sodium/Dextrose 25,000 unit in 500 mls @ 0 mls/hr 10/18/24 10:45 10/18/24 11:15 Heparin IV 650 unit/hr .Q0M SHANE 13 mls/hr Administration Protocol Per Protocol Discontinued Medications Generic Name Dose Route Start Last Admin Trade Name Freq PRN Reason Stop Dose Admin Albuterol/Ipratropium 1 neb 10/18/24 12:11 10/18/24 12:15 Iprat-Albut 0.5-2.5 Mg/3 Ml Neb IH 10/18/24 12:12 1 neb ONCE ONE Administration Aspirin 324 mg 10/18/24 10:35 10/18/24 11:12 Aspirin 81 Mg Tab.Chew PO 10/18/24 10:36 324 mg ONCE ONE Administration Azithromycin 500 mg 10/18/24 06:29 10/18/24 06:51 Azithromycin 250 Mg Tablet PO 10/18/24 06:30 500 mg ONCE ONE Administration Heparin Sodium (Porcine) 3,300 unit 10/18/24 10:35 10/18/24 11:13 Heparin 5,000 Unit/0.5 Ml Inj 60 unit/kg (3300 unit) 10/18/24 10:36 3,300 unit IVP Administration ONCE ONE Ceftriaxone Sodium 1 gm/ 100 mls @ 200 mls/hr 10/18/24 06:29 10/18/24 07:28 Sodium Chloride IVPB 10/18/24 06:30 Infused ONCE ONE Infusion Methylprednisolone Sodium Succinate 125 mg 10/18/24 05:58 10/18/24 06:06 Methylprednisolone Sod Succ 62.5 Mg/Ml (125) IVP 10/18/24 05:59 125 mg ONCE ONE Administration <Kassandra Castellanos MD - Last Filed: 10/18/24 07:51> Generic Name Dose Route Start Last Admin Trade Name Freq PRN Reason Stop Dose Admin Heparin Sodium/Dextrose 25,000 unit in 500 mls @ 0 mls/hr 10/18/24 10:45 10/18/24 11:15 Heparin IV 650 unit/hr .Q0M SHANE 13 mls/hr Administration Protocol Per Protocol Discontinued Medications Generic Name Dose Route Start Last Admin Trade Name Freq PRN Reason Stop Dose Admin Albuterol/Ipratropium 1 neb 10/18/24 12:11 10/18/24 12:15 Iprat-Albut 0.5-2.5 Mg/3 Ml Neb IH 10/18/24 12:12 1 neb ONCE ONE Administration Aspirin 324 mg 10/18/24 10:35 10/18/24 11:12 Aspirin 81 Mg Tab.Chew PO 10/18/24 10:36 324 mg ONCE ONE Administration Azithromycin 500 mg 10/18/24 06:29 10/18/24 06:51 Azithromycin 250 Mg Tablet PO 10/18/24 06:30 500 mg ONCE ONE Administration Heparin Sodium (Porcine) 3,300 unit 10/18/24 10:35 10/18/24 11:13 Heparin 5,000 Unit/0.5 Ml Inj 60 unit/kg (3300 unit) 10/18/24 10:36 3,300 unit IVP Administration ONCE ONE Ceftriaxone Sodium 1 gm/ 100 mls @ 200 mls/hr 10/18/24 06:29 10/18/24 07:28 Sodium Chloride IVPB 10/18/24 06:30 Infused ONCE ONE Infusion Methylprednisolone Sodium Succinate 125 mg 10/18/24 05:58 10/18/24 06:06 Methylprednisolone Sod Succ 62.5 Mg/Ml (125) IVP 10/18/24 05:59 125 mg ONCE ONE Administration <Eloy Fisher DO - Last Filed: 10/18/24 14:31> Medical Decision Making MDM Narrative Medical decision making narrative: She is patient's cyanosis or has a repeat troponin and likely admission. Has been a troponin came back elevated that is 0.68. EKG at that time was going to be showing some T-wave inversions and some she also rate slightly elevated she ST segment. T-waves do appear different compared to previous EKG earlier this morning. She states she currently she says not having any chest pains has never had chest at all with the symptoms. States his shortness of breath has improved significantly. But due to the concern for STEMI I did speak to the on-call having mottler operator, Dr. Bansal. I explained to him the patient is feeling well at this time with no chest pain improved shortness of breath or to initial evaluation. He reviewed the EKGs and he does not think she is having a STEMI but does he take heart catheterization. States he will accept her for transfer. There is a 12 hour wait at this time. He also states that continuing to elevated troponins in the absence of new EKG changes or new symptoms would not require any speed up in the transfer process. Due to this I do not believe is necessary continue to trend her troponins as it would not change management lead on that she become symptomatic. She is given aspirin and heparin. Wall rule waiting she was feeling short of breath again and a dual neb and Aerobika help with her symptoms. Repeated another EKG a few hours later to make sure there was no changes prior to allowing her to eat to make sure she has not got any immediate procedures. <Eloy Fisher DO - Last Filed: 10/18/24 14:31> Lab Data Lab results reviewed: Yes I reviewed the patient's lab results <Kassandra Castellanos MD - Last Filed: 10/18/24 07:51> Labs: Lab Results 10/18/24 10/18/24 10/18/24 Range/Units 06:14 06:16 09:27 WBC 10.37 (4.50-11.00) K/uL RBC 4.71 (4.00-5.20) m/uL Hgb 14.9 (12.0-16.0) gm/dL Hct 43.7 (33.0-51.0) % MCV 93 (80-100) fL MCH 32 (26-34) pg MCHC 34 (32-36) gm/dL RDW Coeff of Zeny 13.3 (11.5-15.5) % Plt Count 303 (140-440) K/uL Neut % (Auto) 72.9 H (42.0-72.0) % Lymph % (Auto) 14.9 L (20-44) % Menard % (Auto) 4.9 (0.0-11.0) % Eos % (Auto) 6.0 (0.0-7.0) % Baso % (Auto) 1.1 (0.0-3.0) % Neut # (Auto) 7.60 H (1.7-7.0) K/uL Lymph # (Auto) 1.50 (0.90-2.90) K/uL Menard # (Auto) 0.50 (0.00-0.90) K/UL Eos # (Auto) 0.62 H (0.00-0.50) K/uL Baso # (Auto) 0.11 (0.00-0.30) K/uL Abs Immat Gran (auto) 0.02 (0.00-0.30) K/uL Imm/Tot Granulo (auto) 0.2 % INR 0.87 L (0.91-1.10) APTT 29 (23-33) Seconds D-Dimer Quant (PE/DVT) 0.47 (0.00-0.50) ug/ml VBG pH 7.341 (7.32-7.43) VBG pCO2 53 H (40-50) mmHG VBG pO2 30.1 (25-47) mmHG VBG HCO3 28 (21-28) mmol/L Sodium 134 L (135-149) mmol/L Potassium 3.2 L (3.6-5.1) mmol/L Chloride 97 (96-114) mmol/L Carbon Dioxide 27 (20-32) mmol/L Anion Gap 10 (7-15) mEq/L BUN 18 (7-30) mg/dL Creatinine 0.8 (0.5-1.5) mg/dL Estimated GFR 73 ml/min Glucose 172 H (60-115) mg/dL Lactate 1.5 (0.5-1.9) mmol/L Calcium 9.6 (8.4-10.6) mg/dL Magnesium 2.1 (1.5-2.6) mg/dL Total Bilirubin 1.9 H (0.1-1.5) mg/dL AST 29 (12-35) U/L ALT 27 (4-35) U/L Alkaline Phosphatase 120 (40-150) U/L Troponin I 0.05 H 0.68 H* (0.01-0.04) ng/mL C-Reactive Protein < 0.5 L (0.5-1.0) mg/dL NT-Pro-B Natriuret Pep 306 pg/mL Total Protein 7.4 (6.0-8.3) g/dL Albumin 4.5 (3.3-5.0) g/dL Procalcitonin 0.05 (<0.50) ng/mL SARS-CoV-2 (PCR) Negative SARS-CoV-2 (Negative) Influenza Type A (PCR) Negative PCR FLU A (Negative) Influenza Type B (PCR) Negative PCR FLU B (Negative) RSV (PCR) Negative PCR RSV (Negative) <Kassandra Castellanos MD - Last Filed: 10/18/24 07:51> Lab Results 10/18/24 10/18/24 10/18/24 Range/Units 06:14 06:16 09:27 WBC 10.37 (4.50-11.00) K/uL RBC 4.71 (4.00-5.20) m/uL Hgb 14.9 (12.0-16.0) gm/dL Hct 43.7 (33.0-51.0) % MCV 93 (80-100) fL MCH 32 (26-34) pg MCHC 34 (32-36) gm/dL RDW Coeff of Zeny 13.3 (11.5-15.5) % Plt Count 303 (140-440) K/uL Neut % (Auto) 72.9 H (42.0-72.0) % Lymph % (Auto) 14.9 L (20-44) % Menard % (Auto) 4.9 (0.0-11.0) % Eos % (Auto) 6.0 (0.0-7.0) % Baso % (Auto) 1.1 (0.0-3.0) % Neut # (Auto) 7.60 H (1.7-7.0) K/uL Lymph # (Auto) 1.50 (0.90-2.90) K/uL Menard # (Auto) 0.50 (0.00-0.90) K/UL Eos # (Auto) 0.62 H (0.00-0.50) K/uL Baso # (Auto) 0.11 (0.00-0.30) K/uL Abs Immat Gran (auto) 0.02 (0.00-0.30) K/uL Imm/Tot Granulo (auto) 0.2 % INR 0.87 L (0.91-1.10) APTT 29 (23-33) Seconds D-Dimer Quant (PE/DVT) 0.47 (0.00-0.50) ug/ml VBG pH 7.341 (7.32-7.43) VBG pCO2 53 H (40-50) mmHG VBG pO2 30.1 (25-47) mmHG VBG HCO3 28 (21-28) mmol/L Sodium 134 L (135-149) mmol/L Potassium 3.2 L (3.6-5.1) mmol/L Chloride 97 (96-114) mmol/L Carbon Dioxide 27 (20-32) mmol/L Anion Gap 10 (7-15) mEq/L BUN 18 (7-30) mg/dL Creatinine 0.8 (0.5-1.5) mg/dL Estimated GFR 73 ml/min Glucose 172 H (60-115) mg/dL Lactate 1.5 (0.5-1.9) mmol/L Calcium 9.6 (8.4-10.6) mg/dL Magnesium 2.1 (1.5-2.6) mg/dL Total Bilirubin 1.9 H (0.1-1.5) mg/dL AST 29 (12-35) U/L ALT 27 (4-35) U/L Alkaline Phosphatase 120 (40-150) U/L Troponin I 0.05 H 0.68 H* (0.01-0.04) ng/mL C-Reactive Protein < 0.5 L (0.5-1.0) mg/dL NT-Pro-B Natriuret Pep 306 pg/mL Total Protein 7.4 (6.0-8.3) g/dL Albumin 4.5 (3.3-5.0) g/dL Procalcitonin 0.05 (<0.50) ng/mL SARS-CoV-2 (PCR) Negative SARS-CoV-2 (Negative) Influenza Type A (PCR) Negative PCR FLU A (Negative) Influenza Type B (PCR) Negative PCR FLU B (Negative) RSV (PCR) Negative PCR RSV (Negative) <Eloy Fisher DO - Last Filed: 10/18/24 14:31> Imaging Data Chest x-ray: Attestation: I have reviewed the pertinent imaging results. <Kassandra Castellanos MD - Last Filed: 10/18/24 07:51> My impression: Right lung looks hazy, did compared to the last chest x-ray that we have and seems to be definitely changed. Will await Radiology over-read. <Kassandra Castellanos MD - Last Filed: 10/18/24 07:51> Radiologist's impression: Patient: CHELSEA HOLT Facility:?[facility] Patient ID:?[id number] Site Patient ID:?[id number]. Site :?[id number] Study:?XRay-Chest 1 VIEW PORTABLE-10/18/2024 6:19:46 AM Ordering Physician:Elysia Cannon Final Report: Indication: Difficulty breathing. COPD. Technique: Chest 1 view. Comparison: 11/30/2020. Findings/Impression: Cardiovascular and mediastinum: Heart size and vasculature are normal in caliber and appearance. Lungs and pleural space: Ill-defined right upper lobe opacity could represent atelectasis and/or infiltrate. Faint opacities in the right lower lung are suspicious for edema or pneumonia. Left lung is clear. No effusions and no pneumothorax. Bones and soft tissues: No acute findings. Dictated by Dom Cao MD @ 10/18/2024 6:26:17 AM (Electronic Signature) <Kassandra Castellanos MD - Last Filed: 10/18/24 07:51> ECG Data Attestation: I personally reviewed and interpreted this ECG as follows: (Sinus tachycardia, 110 beats per minute. Premature supraventricular complex. Poor R-wave progression anterior precordial leads.) <Kassandra Castellanos MD - Last Filed: 10/18/24 07:51> Prior ECG tracings: not available for review <Kassandra Castellanos MD - Last Filed: 10/18/24 07:51> Interpretation: Repeat EKG shows heart rate of 104 beats per minute, normal intervals, normal axis, new inverted T-waves in the lateral leads and some possible slight elevations in V4 through V6. Third EKG done at 13:17 shows a heart rate of 111 beats per minute, sinus tachycardia, normal intervals, normal axis, no ST or T-wave abnormalities. <Eloy Fisher DO - Last Filed: 10/18/24 14:31> Discharge Plan Discharge Clinical Impression: Acute exacerbation of chronic obstructive pulmonary disease Community acquired pneumonia Qualifiers: Laterality: right Lung location: unspecified part of lung Qualified Code(s): J18.9 - Pneumonia, unspecified organism <Kassandra Castellanos MD - Last Filed: 10/18/24 07:51> Prescriptions: No Action multivitamin Tablet 1 tab PO QDAY omeprazole 20 mg tablet,delayed release (DR/EC) PO DAILY albuterol sulfate 90 mcg/actuation HFA aerosol inhaler 1 - 2 puff inhalation Q4H PRN (Reason: wheezing) Qty: 8.5 3RF doxycycline hyclate 100 mg tablet 100 mg PO BID Qty: 14 0RF benzonatate 100 mg capsule 100 mg PO TID PRN (Reason: cough) Qty: 30 3RF prednisone 20 mg tablet 20 mg PO QDAY Qty: 7 0RF Spiriva with HandiHaler 18 mcg capsule, w/inhalation device 1 cap inhalation DAILY Qty: 90 3RF hydrochlorothiazide 25 mg tablet 25 mg PO QDAY Qty: 30 0RF <Kassandra Castellanos MD - Last Filed: 10/18/24 07:51> Follow Up/Referrals: Jag Prakash MD [Primary Care Provider] - <Kassandra Castellanos MD - Last Filed: 10/18/24 07:51>
--- NOTE | 2024-10-18 05:58 | CRLHL7_ITS ---
For Patients: As a result of the Century Cures Act, medical imaging exams and procedure reports are released immediately into your electronic medical record. You may view this report before your referring provider. If you have questions, please contact your health care provider. Indication: Difficulty breathing. COPD. Technique: Chest 1 view. Comparison: 11/30/2020. Findings/Impression: Cardiovascular and mediastinum: Heart size and vasculature are normal in caliber and appearance. Lungs and pleural space: Ill-defined right upper lobe opacity could represent atelectasis and/or infiltrate. Faint opacities in the right lower lung are suspicious for edema or pneumonia. Left lung is clear. No effusions and no pneumothorax. Bones and soft tissues: No acute findings. Dictated by Dom Cao MD @ 10/18/2024 6:26:17 AM (Electronically Signed)
[2024-10-18] MEDS: METHYLPREDNISOLONE SOD SUCC 62.5 MG/ML (125) 125 MG IVP (06:06)
[2024-10-18 06:16] LABS: HCO3 VBG 28 mmol/L (21-28); Lactate* 1.5 mmol/L (0.5-1.9); PCO2 VBG 53 mmHG (40-50); PO2 VBG 30.1 mmHG (25-47); pH VBG 7.341 (7.32-7.43)
[2024-10-18 06:17] LABS: Basophils Absolute Auto 0.11 K/uL (0.00-0.30); Basophils Percent Auto 1.1 % (0.0-3.0); Eosinophils Absolute Auto 0.62 K/uL (0.00-0.50); Hematocrit 43.7 % (33.0-51.0); Hemoglobin* 14.9 gm/dL (12.0-16.0); Immature Granulocytes Abs Auto 0.02 K/uL (0.00-0.30); Immature Granulocytes Pct Auto 0.2 %; Lymphocytes Percent Auto 14.9 % (20-44); Mean Corpuscular HGB Conc 34 gm/dL (32-36); Mean Corpuscular Hemoglobin 32 pg (26-34); Mean Corpuscular Volume 93 fL (80-100); Monocytes Percent Auto 4.9 % (0.0-11.0); Neutrophils Percent Auto 72.9 % (42.0-72.0); Platelet Count* 303 K/uL (140-440); RDW Coefficient of Variation % 13.3 % (11.5-15.5); Red Blood Count 4.71 m/uL (4.00-5.20); White Blood Count* 10.37 K/uL (4.50-11.00)
[2024-10-18 06:19] LABS: Slide Review Reflex No
--- OUTSIDE RECORDS SUMMARY | 2024-10-18 06:26 | XMS_ITS ---
Author Organization [facility] Address [address] [place] [address] Care Team Providers Care Life Skills Instructor Name Role Phone Unavailable Primary Care Provider [...] / 3 5,400 cGy Reference Points Delivered [id number] 08/09/2021 - 08/14/2021 5,400 cGy Resolved Problems [...]
--- OUTSIDE RECORDS SUMMARY | 2024-10-18 06:26 | XMS_ITS | Referral Summary ---
Author Organization [facility] Address [address] [place] [address] Care Team Providers Care Hedis Abstractor Name Role Phone Unavailable Primary Care Provider Unavailabl e Source Comments Patient records contain information from all sites at [facility]. For routine questions regarding patient records, call [phone] during business hours, M-F 8:00 AM - 5:00 PM Central Time. Record requests for emergency care only can be directed to [phone] at any time.[facility] Allergies Active Allergy Reactions Criticality Noted Date Comments Iodine Rash 09/19/2017 Oxycodone Nausea And Vomiting 03/23/2020 Tolerated IV Dilaudid and [place] during hospitalization. 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 [address] [place] [phone] Discharge Disposition: Home or Self Care 11/10/2024 2:30 PM KNURLING MACHINE OPERATOR Appointment Department of Radiation Oncology in [place], [place] [address] [place] [phone] Olive Johnston M.D. [address] [place] [phone] Insurance MEDICARE [facility]
--- OUTSIDE RECORDS SUMMARY | 2024-10-18 06:26 | XMS_ITS | Clinical Summary ---
Author Organization [facility] Address [place], [place] [address] Care Team Providers Care Lpn Medical Assistant Name Role Phone Arianne Hernandez RN, BSN Unavailable [phone] Soto Mars MD Unavailable Pcp, No Primary Care Provider Unavailabl e Allergies Active Allergy Reactions Criticality Noted Date Comments Iodine Rash 09/19/2017 Oxycodone Nausea And Vomiting 03/23/2020 Tolerated IV Dilaudid and [place] during hospitalization. 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 PCP - General 06/01/21 Arianne Hernandez, RN, BSN [address] [place] [id number] Cancer Nurse Coordinator Registered Nurse 04/04/20 Soto Mars MD [address] [address] Cancer Nurse Coordinator Surgery - Cardiothoracic 04/05/20
--- OUTSIDE RECORDS SUMMARY | 2024-10-18 06:26 | XMS_ITS ---
Author Organization [facility] Address [address] [place] [address] Care Team Providers Care Script Artist Name Role Phone Unavailable Unavailable Unavailable Surgery Details Not on file Complications Check Surgery Details section. Procedure Estimated Blood Loss Check Surgery Details section. Procedure Findings Check Surgery Details section. Procedure Specimens Taken Check Surgery Details section.
--- OUTSIDE RECORDS SUMMARY | 2024-10-18 06:26 | XMS_ITS | Clinical Summary ---
Author Organization [facility] Address [address] [place] [address] Care Team Providers Care Potato Peeling Machine Operator Name Role Phone Unavailable Primary Care Provider Unavailabl e Source Comments Patient records contain information from all sites at [facility]. For routine questions regarding patient records, call [phone] during business hours, M-F 8:00 AM - 5:00 PM Central Time. Record requests for emergency care only can be directed to [phone] at any time.[facility] Allergies Active Allergy Reactions Criticality Noted Date Comments Iodine Rash 09/19/2017 Oxycodone Nausea And Vomiting 03/23/2020 Tolerated IV Dilaudid and [place] during hospitalization. 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 [address] [place] [phone] Discharge Disposition: Home or Self Care 11/10/2024 2:30 PM CERTIFIED CAREGIVER Appointment Department of Radiation Oncology in [place], [place] [address] [place] [phone] Olive Johnston M.D. [address] [place] [phone] Health Maintenance Due Date Last Done Comments [...] age to complete this topic Insurance MEDICARE [facility]
[2024-10-18 06:32] LABS: Albumin* 4.5 g/dL (3.3-5.0); Chloride* 97 mmol/L (96-114); Sodium* 134 mmol/L (135-149)
[2024-10-18 06:33] LABS: Potassium* 3.2 mmol/L (3.6-5.1)
[2024-10-18 06:35] LABS: Alanine Aminotransferase* 27 U/L (4-35); Alkaline Phosphatase* 120 U/L (40-150); Anion Gap 10 mEq/L (7-15); Aspartate Amino Transferase* 29 U/L (12-35); Bilirubin Total* 1.9 mg/dL (0.1-1.5); Blood Urea Nitrogen* 18 mg/dL (7-30); Carbon Dioxide* 27 mmol/L (20-32); Creatinine* 0.8 mg/dL (0.5-1.5); Estimated Glomerular Filt Rate 73 ml/min; Total Protein* 7.4 g/dL (6.0-8.3)
[2024-10-18 06:36] LABS: Calcium* 9.6 mg/dL (8.4-10.6); Glucose* 172 mg/dL (60-115); Magnesium* 2.1 mg/dL (1.5-2.6)
[2024-10-18 06:37] LABS: D Dimer Quantitative* 0.47 ug/ml (0.00-0.50)
[2024-10-18 06:47] LABS: Troponin I* 0.05 ng/mL (0.01-0.04)
[2024-10-18] MEDS: AZITHROMYCIN 250 MG TABLET 500 MG PO (06:51)
[2024-10-18] MEDS: cefTRIAXone 1 GM in 0.9 % SODIUM CHLORIDE Mini-bag 100 ML IVPB (06:51)
[2024-10-18 06:52] LABS: Procalcitonin* 0.05 ng/mL (<0.50)
[2024-10-18 07:01] LABS: PCR FLU A Negative PCR FLU A (Negative); PCR FLU B Negative PCR FLU B (Negative); PCR RSV Negative PCR RSV (Negative); SARS PCR* Negative SARS-CoV-2 (Negative)
[2024-10-18 07:07] LABS: C Reactive Protein* < 0.5 mg/dL (0.5-1.0); NT Pro B Type NatriureticPept* 306 pg/mL
[2024-10-18 10:07] LABS: Troponin I* 0.68 ng/mL (0.01-0.04)
[2024-10-18] MEDS: ASPIRIN 81 MG TAB.CHEW 324 MG PO (11:12)
[2024-10-18] MEDS: HEPARIN 5,000 UNIT/0.5 ML INJ 3300 UNIT IVP (11:13)
[2024-10-18] MEDS: HEPARIN 25,000 UNIT/500 ML BAG 13 UNIT IV (11:15)
[2024-10-18 11:36] LABS: INR 0.87 (0.91-1.10); Partial Thromboplastin Time* 29 Seconds (23-33); Prothrombin Time 12.4 Seconds
[2024-10-18] MEDS: IPRAT-ALBUT 0.5-2.5 MG/3 ML NEB 1 NEB IH (12:15)
--- NOTE | 2024-10-18 14:05 | ED.NURSE ---
Patient able to use aerobika independently with nurse encouragement. No reports of pain. Patient denies being hungry at this time. ED bed switched out with bed from med/surg floor for patient comfort and due to potential length of stay.
--- NOTE | 2024-10-18 16:39 | ED.NURSE ---
Patient up, ambulating to bathroom with 2L oxygen. Some SOB noted by nurse and patient. Upon returning to room, oxygen saturation >90% on 2L.
[2024-10-18 17:44] LABS: Basophils Absolute Auto 0.02 K/uL (0.00-0.30); Basophils Percent Auto 0.4 % (0.0-3.0); Hematocrit 41.9 % (33.0-51.0); Hemoglobin* 14.5 gm/dL (12.0-16.0); Immature Granulocytes Abs Auto 0.01 K/uL (0.00-0.30); Immature Granulocytes Pct Auto 0.2 %; Lymphocytes Percent Auto 7.1 % (20-44); Mean Corpuscular HGB Conc 35 gm/dL (32-36); Mean Corpuscular Hemoglobin 31 pg (26-34); Mean Corpuscular Volume 90 fL (80-100); Neutrophils Percent Auto 89.3 % (42.0-72.0); Platelet Count* 288 K/uL (140-440); RDW Coefficient of Variation % 13.2 % (11.5-15.5); Red Blood Count 4.65 m/uL (4.00-5.20); White Blood Count* 5.63 K/uL (4.50-11.00)
[2024-10-18 17:57] LABS: INR 0.93 (0.91-1.10); Prothrombin Time 13.1 Seconds
[2024-10-18 17:58] LABS: Partial Thromboplastin Time* 68 Seconds (23-33)
[2024-10-18 18:03] LABS: Slide Review Reflex No
[2024-10-18] MEDS: HEPARIN 25,000 UNIT/500 ML BAG 11 UNIT IV (18:23)
--- NOTE | 2024-10-18 18:34 | ED.NURSE ---
Maria T calling for report- nurse to nurse given. Patient cannot arrive before 1900. EMS called and ETA to [place] is 30-45min
== END 2024-10-18 19:30 | disposition home or self-care (01) ==
PROVIDERS: Family Medicine; Emergency Provider Student in an Organized Health Care Education/Training Program; PCP Family Medicine
DX: J18.9 Pneumonia, unspecified organism (principal); J44.1 Chronic obstructive pulmonary disease with (acute) exacerbation
CPT/HCPCS: 36415; 71045; 80053; 82803; 83605; 83735; 83880; 84145; 84484; 85025; 85027; 85379; 85610; 85730; 86140; 87631; 93005; 94664; 94761; 99284; 99285; A9270; J0696; J1644; J2919

== ENCOUNTER 2024-10-18 19:05 | Outpatient (CLI) | payer MEDICARE, BC, SELFPAY | END 2024-10-18 19:06 | disposition home or self-care (01) | LOC: AMB 10-30 02:08 | PROVIDERS: PCP Family Medicine; Visit Provider Student in an Organized Health Care Education/Training Program | DX: J44.1 Chronic obstructive pulmonary disease with (acute) exacerbation (principal); J18.9 Pneumonia, unspecified organism | CPT/HCPCS: A0425; A0434 ==